=== PATIENT | female | born 1970 | race Caucasian/White ===

== ENCOUNTER 2019-01-19 10:17 | Emergency (ER) | payer OTHER ==
[~2019-01-19] VITALS: Ht 157.5 cm; Wt 112.5 kg
[2019-01-19] MEDS ORDERED: MELATONIN5 M1 PO (10:34)
[2019-01-19] MEDS ORDERED: ACETAMINOPHEN-1 EAC1 PO (11:27)
[2019-01-19 11:33] VITALS: BP 142/76
== END 2019-01-19 11:33 | disposition home or self-care (01) ==
LOC: M.ERS 10:17
DX: S93.492A Sprain of other ligament of left ankle, initial encounter (principal); X58.XXXA Exposure to other specified factors, initial encounter; Y92.89 Other specified places as the place of occurrence of the external cause; Y93.89 Activity, other specified; Y99.8 Other external cause status

== ENCOUNTER 2019-01-23 08:22 | Emergency (ER) | payer OTHER ==
[~2019-01-23] VITALS: Ht 160 cm; Wt 113.8 kg
[~2019-01-23 08:22] MED LIST: ACETAMINOPHEN-1 EAC1 PO; MELATONIN5 M1 PO
[2019-01-23 08:52] LABS: ABSOLUTE EOSINOPHILS 0.3 thou/uL (0.0-0.7); ABSOLUTE LYMPHOCYTES 1.6 thou/uL (0.8-5.3); ABSOLUTE MONOCYTES 0.5 thou/uL (0.0-1.2); ABSOLUTE NEUTROPHILS 2.9 thou/uL (1.6-8.1); BASOPHILS 0.4 %; EOSINOPHILS 5.3 %; HEMATOCRIT 42.9 % (37.0-47.0); HEMOGLOBIN 14.7 gm/dL (12.0-15.0); LYMPHOCYTES 30.5 %; MCH 32.8 pg (26.0-34.0); MCHC 34.2 g/dL (28.0-37.0); MCV 95.9 fL (80.0-100.0); MONOCYTES 9.4 %; MPV 8.6 fl. (7.2-11.1); NUCLEATED RBCS 0 /100WBC; PLATELET COUNT* 204 thou/uL (150-400); POLYS 54.4 %; RBC 4.48 mil/uL (4.20-5.00); RDW-CV 12.6 % (10.5-14.5); WBC 5.4 thou/uL (4.0-11.0)
[2019-01-23 09:09] LABS: ANION GAP 9 mmol/L (7-16); BUN 13 mg/dL (7-18); CALCIUM 8.6 mg/dL (8.5-10.1); CHLORIDE 103 mmol/L (98-107); CO2 25 mmol/L (21-32); CREATININE 0.5 mg/dL (0.6-1.3); GLUCOSE 103 mg/dL (70-99); SODIUM 137 mmol/L (136-145)
[2019-01-23 09:10] LABS: INR 1.1
[2019-01-23 09:20] LABS: ALBUMIN 3.2 g/dL (3.4-5.0); ALKALINE PHOSPHATASE 88 U/L (46-116); LIPASE 74 U/L (73-393); NT-PRO BRAIN NAT PEPTIDE 51 pg/mL (<300); SGOT 40 U/L (15-37); SGPT 25 U/L (30-65); TOTAL BILIRUBIN 0.4 mg/dL (<0.1-1.0); TOTAL PROTEIN 7.2 g/dL (6.4-8.2); TROPONIN-I LEVEL <0.06 ng/mL (<0.06)
[2019-01-23] MEDS ORDERED: PEPCID40 MG PO (11:22)
[2019-01-23 11:36] VITALS: BP 142/95
--- NOTE | 2019-01-24 16:55 | EKG ---
[place] [address] ELECTROCARDIOGRAM REPORT Name: AYAZ MONGE Room: [facility]#: [id number] Admission: 01/23/19 Attend Phys: Discharge: 01/23/19 Date of : 66 Report #: [id number] THIS REPORT FOR: //name// [facility] ED Test Date: 2019-01-23 Test Time: 08:27:39 Pat Name: AYAZ MONGE Department: Room: Gender: F Ground Host/Hostess: : 1970 Requested By: Ernst Werner Order Number: [id number] MD: Scott Steele Measurements Intervals [place] Rate: 95 P: 62 GA: 156 QRS: 11 QRSD: 85 T: 32 QT: 352 QTc: 443 Interpretive Statements Sinus rhythm Borderline low voltage, extremity leads Baseline wander in lead(s) V4 No previous ECG available for comparison Electronically Signed On 01-24-2019 16:55:28 CDT by Scott Steele [email or web address] <ELECTRONICALLY SIGNED> By: Scott Steele MD, [facility] 01/24/19 1655 0827 6 Scott Steele MD, FACC /EPI
== END 2019-01-23 11:36 | disposition home or self-care (01) ==
LOC: M.ERS 08:22
PROVIDERS: Emergency Medicine
DX: R07.89 Other chest pain (principal); M54.6 Pain in thoracic spine

== ENCOUNTER 2019-04-12 07:50 | Emergency (ER) | payer OTHER ==
[~2019-04-12] VITALS: Ht 160 cm; Wt 110.2 kg
[~2019-04-12 07:50] MED LIST changes: +PEPCID40 MG PO
[2019-04-12 09:19] LABS: ABSOLUTE EOSINOPHILS 0.1 thou/uL (0.0-0.7); ABSOLUTE LYMPHOCYTES 1.3 thou/uL (0.8-5.3); ABSOLUTE MONOCYTES 0.4 thou/uL (0.0-1.2); ABSOLUTE NEUTROPHILS 3.1 thou/uL (1.6-8.1); BASOPHILS 0.5 %; HEMATOCRIT 42.1 % (37.0-47.0); HEMOGLOBIN 14.6 gm/dL (12.0-15.0); LYMPHOCYTES 26.4 %; MCH 32.6 pg (26.0-34.0); MCHC 34.6 g/dL (28.0-37.0); MCV 94.2 fL (80.0-100.0); MONOCYTES 8.8 %; MPV 7.7 fl. (7.2-11.1); NUCLEATED RBCS 0 /100WBC; PLATELET COUNT* 196 thou/uL (150-400); POLYS 62.3 %; RBC 4.47 mil/uL (4.20-5.00); RDW-CV 12.8 % (10.5-14.5)
[2019-04-12 09:28] LABS: CREATININE 0.9 mg/dL (0.6-1.3)
[2019-04-12 09:33] LABS: ALBUMIN 3.7 g/dL (3.4-5.0); TOTAL BILIRUBIN 0.4 mg/dL (<0.1-1.0); TOTAL PROTEIN 7.5 g/dL (6.4-8.2)
[2019-04-12] MEDS ORDERED: IBUPROFEN 800800 MG PO (09:47)
[2019-04-12] MEDS ORDERED: FLEXERIL PO (09:48)
[2019-04-12 09:54] VITALS: BP 180/88
--- NOTE | 2019-04-12 17:28 | EKG ---
[place] [address] ELECTROCARDIOGRAM REPORT Name: AYAZ MONGE Room: [facility]#: [id number] Admission: 04/12/19 Attend Phys: Discharge: 04/12/19 Date of : 66 Report #: [id number] THIS REPORT FOR: //name// [facility] ED Test Date: 2019-04-12 Test Time: 08:52:45 Pat Name: AYAZ MONGE Department: Room: Gender: F [employer] Chief Scientist: : 1970 Requested By: Ernst Werner Order Number: [id number] MD: Elliott Fuentes Measurements Intervals [place] Rate: 83 P: CA: QRS: 1 QRSD: 86 T: 23 QT: 382 QTc: 449 Interpretive Statements Sinus rhythm Borderline T wave abnormalities Compared to ECG 01/23/2019 08:27:39 T-wave abnormality now present Sinus rhythm no longer present Electronically Signed On 04-12-2019 17:27:59 MANUFACTURING CLERK by Elliott Fuentes [email or web address] <ELECTRONICALLY SIGNED> By: Elliott Fuentes MD, [facility] 04/12/19 1727 D: 11851 1 Elliott Fuentes MD, FACC /EPI
== END 2019-04-12 09:55 | disposition home or self-care (01) ==
LOC: M.ERS 07:50
PROVIDERS: Emergency Medicine
DX: S39.012A Strain of muscle, fascia and tendon of lower back, initial encounter (principal); X58.XXXA Exposure to other specified factors, initial encounter; Y93.89 Activity, other specified; Y92.89 Other specified places as the place of occurrence of the external cause; Y99.8 Other external cause status

== ENCOUNTER 2020-02-23 08:20 | Emergency (ER) | payer BC ==
[~2020-02-23] VITALS: Ht 160 cm; Wt 113.4 kg
[~2020-02-23 08:20] MED LIST changes: +FLEXERIL PO; +IBUPROFEN 800800 MG PO
[2020-02-23] MEDS ORDERED: TYLENOL PM EX-1 EACH PO (08:26)
[2020-02-23 08:53] LABS: ABSOLUTE EOSINOPHILS 0.2 thou/uL (0.0-0.7); ABSOLUTE MONOCYTES 0.5 thou/uL (0.0-1.2); ABSOLUTE NEUTROPHILS 3.7 thou/uL (1.6-8.1); BASOPHILS 0.5 %; EOSINOPHILS 3.4 %; HEMATOCRIT 43.4 % (37.0-47.0); HEMOGLOBIN 15.4 gm/dL (12.0-15.0); LYMPHOCYTES 30.3 %; MCH 33.4 pg (26.0-34.0); MCHC 35.6 g/dL (28.0-37.0); MCV 93.9 fL (80.0-100.0); MPV 7.7 fl. (7.2-11.1); NUCLEATED RBCS 0 /100WBC; PLATELET COUNT* 189 thou/uL (150-400); POLYS 57.8 %; RBC 4.63 mil/uL (4.20-5.00); RDW-CV 12.7 % (10.5-14.5); WBC 6.4 thou/uL (4.0-11.0)
[2020-02-23 09:02] LABS: APTT 24.3 Seconds (25.0-31.3); INR 1.1; PROTIME 11.2 Seconds (9.20-11.50)
[2020-02-23 09:06] LABS: CALCIUM 8.4 mg/dL (8.5-10.1); CREATININE 0.8 mg/dL (0.6-1.3); POTASSIUM 4.3 mmol/L (3.5-5.1)
[2020-02-23 09:12] LABS: ALBUMIN 3.3 g/dL (3.4-5.0); CK-MB MASS 0.8 ng/mL (<0.5-3.6); MAGNESIUM 1.7 mg/dL (1.8-2.4); TOTAL BILIRUBIN 0.5 mg/dL (<0.1-1.0); TOTAL PROTEIN 7.3 g/dL (6.4-8.2)
--- NOTE | 2020-02-23 15:25 | EXE ---
[place] [address] STRESS ECHOCARDIOGRAM Name: AYAZ MONGE Room: [facility]#: [id number] Admission: 02/23/20 Attend Phys: Discharge: Date of : 66 Date of Service: 02/23/20 1525 Report #: [id number] THIS REPORT FOR: cc: FAM - No family physician/PCP FAM - No family physician/PCP Elliott Fuentes MD [facility] ~ APPROVED REPORT Study performed: 02/23/2020 13:35:34 Exam: Stress Echocardiogram Indication: Chest pain Patient Location: ER Stress Nurse: Leana Ho RN Supervising Physician: Elliott Fuentes MD Status: routine Ht: 5 ft 3 in HR: 75 bpm BP: 132/70 mmHg Rhythm: NSR Procedure The patient underwent an Exercise Stress Test using the Mihai Protocol. Blood pressure, heart rate, and EKG were monitored. An Echocardiogram was performed by diesel technician in four stages in quad fashion. At peak stress, four selected images were obtained and placed side by side with resting images for comparison. Echo Enhancing Agent Indication: Endocardial border delineation Agent(s) / Amount(s) Used: Optison 7 cc Stress Test Details Stress Test: Exercise stress testing was performed using a Mihai protocol. HR Resting HR: 75 bpm Max Heart Rate (APMHR): 169 bpm Max HR Achieved: 158 bpm Target HR (85% APMHR): 143 bpm % of APMHR: 93 Recovery HR: 109 bpm HR response to stress: Normal HR response to stress BP Resting BP: 132/70 [place] [address] STRESS ECHOCARDIOGRAM Name: MARIPOSAAYAZ A Room: [facility]#: [id number] Admission: 02/23/20 Attend Phys: Discharge: Date of : 66 Date of Service: 02/23/20 1525 Report #: [id number] Max BP: 151/82 mmHg Recovery BP: 140/80 mmHg BP response to stress: Normal blood pressure response to stress. ECG Resting ECG: Sinus Rhythm Stress ECG: Sinus Tachycardia ST Change: None Arrhythmia: None Recovery ECG: Sinus Rhythm Recovery ST Change: None Recovery Arrhythmia: None Clinical Reason for Termination: Maximal effort Exercise duration: 5 min sec Highest Stage Achieved: Stage 2: 2.5 mph at 12% grade. Exercise capacity: 7.05 METs The patient tolerated standard Mihai protocol exercise without significant cardiac complaints. Stress ECG Conclusion The baseline twelve-lead EKG shows sinus rhythm without significant ST segment or T wave abnormality. EKGs obtained during and post exercise shows sinus rhythm and sinus tachycardia with no significant ST segment or T wave changes when compared to baseline. There were no stress-induced arrhythmias. Pre-Stress Echo The resting Echocardiogram showed normal left ventricular contractility with an estimated Ejection Fraction of about 55-60%. The resting echocardiogram demonstrated normal wall motion in all wall segments. Post-Stress Echo The stress Echocardiogram showed normal left ventricular contractility with an estimated Ejection Fraction of about >70%. Compared to rest, there were no stress-induced wall motion abnormalities. Conclusion Clinical Response: Non-ischemic Exercise Capacity: Below Average Stress ECG Response: Non-ischemic Stress Echo Images: [place] [address] STRESS ECHOCARDIOGRAM Name: AYAZ MONGE Room: [facility]#: [id number] Admission: 02/23/20 Attend Phys: Discharge: Date of : 66 Date of Service: 02/23/20 1525 Report #: [id number] Other Information Technically limited study due to body habitus. <ELECTRONICALLY SIGNED> By: Elliott Fuentes MD, FACC 02/23/20 1525 152 24 Elliott Fuentes MD, FACC /INF
[2020-02-23 15:31] VITALS: BP 119/57
--- NOTE | 2020-02-23 15:40 | EKG ---
[place] [address] ELECTROCARDIOGRAM REPORT Name: AYAZ MONGE Room: [facility]#: [id number] Admission: 02/23/20 Attend Phys: Discharge: 02/23/20 Date of : 66 Date of Service: 02/23/20 0825 Report #: [id number] THIS REPORT FOR: //name// [facility] ED Test Date: 2020-02-23 Test Time: 08:25:13 Pat Name: AYAZ MONGE Department: Room: Gender: Prosthetic Aides Teacher: : 1970 Requested By: Arnie Boss Order Number: [id number] MD: Elliott Fuentes Measurements Intervals [place] Rate: 115 P: 67 VT: 146 QRS: 38 QRSD: 81 T: 42 QT: 316 QTc: 437 Interpretive Statements Sinus tachycardia Low voltage, extremity leads Baseline wander in lead(s) V1,V6 Compared to ECG 04/12/2019 08:52:45 Low QRS voltage now present Sinus rhythm no longer present T-wave abnormality no longer present Electronically Signed On 02-23-2020 15:39:56 CDT by Elliott Fuentes [email or web address] <ELECTRONICALLY SIGNED> By: Elliott Fuentes MD, FACC 02/23/20 1539 4 4 Elliott Fuentes MD, FACC /EPI
== END 2020-02-23 15:31 | disposition home or self-care (01) ==
LOC: M.ERS 08:20
PROVIDERS: Family Medicine
DX: R07.89 Other chest pain (principal)